=== PATIENT | male | born 1995 | race Caucasian/White ===

== ENCOUNTER 2017-09-14 14:31 | Emergency (ER) | payer OTHER ==
[~2017-09-14] VITALS: Ht 180.3 cm; Wt 74.5 kg
[~2017-09-14 14:31] MED LIST: OXYC-57 PO
[2017-09-14 14:37] VITALS: Ht 180.3 cm; Wt 74.5 kg
--- NOTE | 2017-09-14 14:59 | EMERGENCY ROOM VISIT NOTE ---
ED Visit Note First contact with patient: 14:44 CHIEF COMPLAINT: Suture removal right lower leg HPI: This patient returns to the ED today for removal of sutures that were placed 14 days ago. There has been no swelling, redness, or drainage from the wound. The patient feels like the laceration is healing well. REVIEW OF SYSTEMS: 3 system review was performed and was negative unless stated otherwise in history of present illness. PMH: The patient is healthy; there is no significant medical or surgical history. SOCIAL HISTORY: Patient states he took the Keflex as prescribed. Patient admits to tobacco use but denies any alcohol use. PHYSICAL EXAM: Vital Signs: Were reviewed reviewed Nurse's notes. General: 22- year-old male appears in no acute distress. MENTAL Status: Alert and oriented 3. RIGHT LOWER LEG: There is a sutured wound on the anterior aspect with no signs of infection. There is no erythema, swelling, or tenderness. EMERGENCY DEPARTMENT COURSE: The sutures were removed without any difficulty and there was no separation of the wound edges. DIAGNOSIS: Healing right lower leg laceration and suture removal DISCHARGE INSTRUCTIONS AND TREATMENT: Do not remove scabs unless they fall off on their own. You may go swimming in a swimming pool but I would recommend not swimming in a [place]indsay until wound has completely healed. Any signs of infection, follow-up with your family doctor for reevaluation. Current/Historical Medications Scheduled PRN Oxycodone/Acetaminophen 5MG/325MG (Percocet 5MG/325MG), 1 TAB PO Q4H PRN for Pain Allergies Coded Allergies: Pseudoephedrine (Unverified Allergy, Mild, RASH, 08/31/17) RASH UNDER ARMS Vital Signs Date Time Temp Pulse Resp B/P (MAP) Pulse Ox O2 Delivery O2 Flow Rate FiO2 09/14/17 14:37 36.8 54 20 133/69 97 Room Air Departure Information Referrals No Doctor, Assigned (PCP) Patient Instructions My [facility]
[2017-09-14 15:04] VITALS: BP 133/69; PULSE 54; TEMP 36.8; O2SAT 97
== END 2017-09-14 15:05 | disposition home or self-care (01) ==
LOC: C.EDB 14:31 → C.EDD 15:05
DX: S81.811D Laceration without foreign body, right lower leg, subsequent encounter (principal); X58.XXXD Exposure to other specified factors, subsequent encounter; Z72.0 Tobacco use; Z88.8 Allergy status to other drugs, medicaments and biological substances